=== PATIENT | male | born 1950 | race Hispanic/Latino ===

== ENCOUNTER 2017-01-19 12:37 | Outpatient (CLI) | payer BC ==
--- NOTE | 2017-01-19 15:32 | CT ---
CT STONE PROTOCOL: HISTORY: Right flank pain, right ureteral stone. FINDINGS: Absence of oral and IV contrast reduces the sensitivity of the exam, particularly for evaluation of solid organs involved. The lung bases are clear. No calcified gallstones are seen. No free air or free fluid is noted in the abdomen or pelvis. A normal-appearing appendix is present. There is decreased attenuation of the liver compared to the spleen consistent with fatty infiltratio n. No calculi are seen in the kidneys, ureters, or the urinary bladder. No hydroureteral nephrosis not ed on either side. There are vascular calcifications without evidence of aneurysmal dilatation of the abdominal aorta. 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 There are degenerative changes of the spine. IMPRESSION: 1. No CT evidence of urinary tract calculi or obstruction. 2. Fatty liver. POS: [facility]
== END 2017-01-19 12:38 | disposition home or self-care (01) ==
LOC: BURCT 12:37
PROVIDERS: ATTEND Family Medicine
DX: N20.1 Calculus of ureter (principal); K76.0 Fatty (change of) liver, not elsewhere classified
CPT/HCPCS: 74176